=== PATIENT | female | born 1975 | race Caucasian/White ===

== ENCOUNTER → 2019-01-29 08:25 | Outpatient (CLI) | payer BC, SELFPAY ==
--- NOTE | 2019-01-29 08:32 | FL_ITS ---
PROCEDURE: FL UPPER GI W AIR CLINICAL INDICATION: DYSPHAGIA Dysphagia, chest pain COMPARISON: , Epigastric pain TECHNIQUE: FLUOROSCOPY TIME : 1 minutes and 18 seconds FINDINGS: The esophagus, stomach, and duodenum have an unremarkable appearance.There is no evidence of hiatal hernia. No ulcer or mass evident. No mucosal abnormalities apparent. There is normal peristalsis. The duodenal C-loop is nondisplaced. IMPRESSION: Negative upper GI Dictated by: Dave Ch MD 01/29/2019 11:15 Signed by: <Electronically signed by Dave Ch MD in OV> 01/29/2019 11:15
== END ==
PROVIDERS: PCP Family Medicine; Visit Provider Physician Assistant
DX: R13.10 Dysphagia, unspecified (principal)
CPT/HCPCS: 74247

== ENCOUNTER 2021-05-29 09:17 | Emergency (ER) | payer BC, SELFPAY ==
[2021-05-29 10:10] VITALS: BP 146/96; PULSE 83; RESP 18; TEMP 37; O2SAT 96; BMI 26.6
--- NOTE | 2021-05-29 10:24 | HMH.EDUTC ---
[facility] Disposition Clinical Impression: Viral syndrome Pharyngitis Qualifiers: Pharyngitis/tonsillitis etiology: unspecified etiology Qualified Code(s): J02.9 - Acute pharyngitis, unspecified Disposition: Home, Self-Care Condition on Discharge: Good Instructions: DI for Pharyngitis/Tonsillopharyngitis -- Adult, Preventing the Spread of Coronavirus Discharge Instructions Additional Instructions: Drink plenty of fluids. Take tylenol or ibuprofen for pain or fever. Take the medications as directed. Follow up with your regular doctor. GO TO THE ER FOR ANY WORSENING SYMPTOMS Quarantine until you know the results of your covid-19 test. If it is positive, the health department should call you and give you further instructions about your length of Quarantine and other things. Notify your school or workplace of your results and follow their instructions regarding return to work/school. The cough medication (promethazine dm) will make you drowsy, so don't drive or operate heavy machinery after taking it. Prescriptions: Promethazine/Dextromethorphan [Promethazine-Dm Syrup] 5 ml PO Q6HP PRN #240 ml PRN Reason: Cough Transmission Status: Received by [facility] predniSONE [Prednisone 20mg Tab] 20 mg PO BID 4 Days #8 tab Transmission Status: Received by [facility] Azithromycin [Z-Shar 250mg Tab*] 250 mg PO UD DOSE PK #6 tab Transmission Status: Received by [facility] Referrals: Jessenia Atkins MD [Primary Care Provider] - Forms: Work/School Release Time of Disposition: 11:06 Medical Decision Making - Medical Records Medical records reviewed: No: I reviewed the patient's medical records. - Navdeep Inquiry Pt receiving controlled substance: No Vital Signs: 05/29/21 10:10 05/29/21 11:07 Temperature 98.6 F 98.6 F Temperature Source Oral Pulse Rate 83 Pulse Rate [Right Brachial] 83 Respiratory Rate 18 18 Blood Pressure 146/96 H Blood Pressure [Right Arm] 146/96 H Blood Pressure Mean [Right Arm] 112 Blood Pressure Source [Right Arm] Automatic Cuff Blood Pressure Position [Right Arm] Sitting 02 Sat by Pulse Oximetry 96 Oxygen Delivery Method Room Air - Lab Data Lab results reviewed: Yes: I reviewed the patient's lab results. Lab Results 05/29/21 10:27: Strep [facility] Negative Orders (Tests/Meds): ORDERS Category Date Time Status Strep Screen Confirmation Routine Micro 05/29/21 10:27 Received [facility] HPI - General Stated complaint: bilateral ear ache, sore throat, cough Time Seen by Provider: 05/29/21 10:24 - History of Present Illness Provider Complaint: She reports that since yesterday she has been feeling very bad. She has had body aches, low grade fever up to 99.9, a dry cough and a scratchy sore throat. She has not been vaccinated against covid-19. - Related Data Home Medications Medication Instructions Recorded Confirmed Esomeprazole Magnesium [Nexium] 40 mg PO DAILY 09/08/17 11/22/17 Previous Rx's Medication Instructions Recorded Azithromycin [Z-Shar 250mg Tab*] 250 mg PO UD DOSE PK #6 tab 05/29/21 Promethazine/Dextromethorphan 5 ml PO Q6HP PRN #240 ml 05/29/21 [Promethazine-Dm Syrup] predniSONE [Prednisone 20mg 20 mg PO BID 4 Days #8 tab 05/29/21 Tab] Allergies Allergy/AdvReac Type Severity Reaction Status Date / Time Iodinated Contrast Media Allergy Unknown Verified 11/22/17 07:01 [IODINATED CONTRAST MEDIA - ORAL AND] nickel [NICKEL] Allergy Unknown Verified 11/22/17 07:01 [facility] History - Hepatitis A Screen Attestation statement:: This patient has been screened for Hepatitis A risk factors. I have reviewed the patient's past medical history: Yes Medical History: Reports:: Hypertension Denies:: Cancer, Diabetes Mellitus Type 1, Diabetes Mellitus Type 2, Internal Pacemaker, Lung Disease, MRSA, Seizures Other Surgeries: No: Pacemaker Amputation: No Fractures:
[2021-05-29 10:28] LABS: UTC Strep Screen (Rapid) Negative (Negative)
[2021-05-29 11:07] VITALS: BP 146/96; PULSE 83; RESP 18; TEMP 37; O2SAT 96
== END 2021-05-29 11:12 | disposition home or self-care (01) ==
PROVIDERS: Emergency Provider Nurse Practitioner Family; PCP Family Medicine
DX: J02.9 Acute pharyngitis, unspecified (principal); B34.9 Viral infection, unspecified; Z20.822 Contact with and (suspected) exposure to COVID-19
CPT/HCPCS: 87880; 99202; C9803; G0463; U0003; U0005

== ENCOUNTER 2022-07-05 18:12 | Emergency (ER) | payer BC, SELFPAY ==
[2022-07-05 18:12] VITALS: BP 143/97; PULSE 109; RESP 18; TEMP 36.8; O2SAT 98; BMI 26.6
--- NOTE | 2022-07-05 18:28 | ECG_ITS ---
APPROVED REPORT Exam: Resting ECG HR:90 bpm ECG Measurements Heart Rate 90 AXES AK 128 P 64 QRSd 87 QRS 58 QT 356 T 57 QTc 404 Conclusion SINUS RHYTHM NORMAL ECG UNCONFIRMED REPORT Electronically signed by : Amari Jack MD 07/06/2022 13:34:28
--- NOTE | 2022-07-05 18:42 | XR_ITS ---
PROCEDURE INFORMATION: Exam: XR Chest Exam date and time: 07/05/2022 7:02 PM Age: 46 years old Clinical indication: Pain; Chest pressure; Additional info: Chest pain TECHNIQUE: Imaging protocol: Radiologic exam of the chest. Views: 1 view. COMPARISON: CR CXR2V XR chest 2V 09/08/2017 8:35 PM FINDINGS: Lungs: Low lung volumes. Question mild peribronchial thickening and perihilar stranding suggesting possible bronchitis. Pulmonary vasculature grossly normal. No gross pulmonary infiltrates. Pleural spaces: No pleural effusion. No pneumothorax. Heart/Mediastinum: Heart size normal. No tracheal/mediastinal shift. Bones/joints: No acute osseous abnormalities are identified. IMPRESSION: 1. No definite acute process. Low lung volumes. 2. Question mild changes of bronchitis. No gross pulmonary infiltrates.
[2022-07-05 18:47] LABS: Coronavirus 19, PCR Not Detected (NotDetected); Influenza A, PCR Not Detected (NotDetected); Influenza B, PCR Not Detected (NotDetected)
--- NOTE | 2022-07-05 18:53 | PC.NURSE ---
radiology here for cxr
[2022-07-05 18:54] LABS: Chloride 109 mmol/L (98-107); Potassium 3.9 mmoL/L (3.5-5.1); Sodium 144 mmol/L (136-145)
--- NOTE | 2022-07-05 18:55 | HMH.EDGENADL ---
Discharge Plan Disposition Patient Disposition: Home, Self-Care Condition: Good Prescriptions Prescriptions: New hydroxyzine HCl 25 mg tablet 25 mg PO Q8H PRN (Reason: itching) Qty: 20 0RF ondansetron 4 mg tablet,disintegrating 4 mg PO Q8H PRN (Reason: nausea and vomiting) 4 Days Qty: 12 0RF No Action esomeprazole magnesium [Nexium] 40 MG capsule,delayed release(DR/EC) 40 mg PO DAILY promethazine-DM 120 ML syrup 5 ml PO Q6HP PRN (Reason: Cough) Qty: 240 0RF prednisone 20 MG tablet 20 mg PO BID 4 Days Qty: 8 0RF azithromycin 250 MG tablet 250 mg PO UD DOSE PK Qty: 6 0RF Rx Instructions: Take two (2) tablets today, then one (1) tablet days #2 thru #5 Referrals Follow up/Referrals: Jessenia Atkins MD [Primary Care Provider] - See instructions Activity Restrictions/Add. Instructions Additional Instructions/Restrictions: You were evaluated in the emergency department today. Please follow-up with your primary care provider over the next 48 hours. I recommend keeping a log of your blood pressures at home. call center support representative your prescriptions and take them as needed for symptoms. Return to the emergency department for any new or worsening symptoms. Clinical Impressions Clinical Impression: Panic attack Chest pain Qualifiers: Chest pain type: unspecified Qualified Code(s): R07.9 - Chest pain, unspecified Nausea & vomiting Qualifiers: Vomiting type: unspecified Qualified Code(s): R11.2 - Nausea with vomiting, unspecified Instructions Patient Instructions: Anxiety and Panic Attacks (Alternative Therapy), DI for Vomiting -- Adult Discharge ED Provider: Radha Morgan General Adult HPI General Chief complaint: Anxiety Stated complaint: elevated bp Time Seen by Provider: 07/05/22 18:29 Mode of Arrival: Ambulatory Source of Information: Patient Limitations: No Limitations Description of Symptoms (Recalled from ER Triage Doc. by RN): c/o high blood pressure at home with vomiting/diarrhea and some soreness/pain in her neck, maybe chest and arm. Pt states that she has a hx of anxiety and maybe this is a panic attack but she hasnt had one in a long time. States her v/d started Tuesday and it hasnt went away so this has her worried. History of Present Illness HPI narrative: This patient is a 46-year-old female with a history of anxiety who presented to the emergency department for evaluation with concern for panic attack. She states that she has been feeling bad over the last 4 days. She states that she has had nausea, vomiting, body aches, and diarrhea. Emesis is nonbloody nonbilious. She has no significant pain associated. She states that she took her blood pressure today for the first time in a long time, and she noted that it was high with a systolic in the 180s. Given this, she began to panic. She kept taking her blood pressure repeatedly, then went for a drive train to get it to go down, however it remained elevated in the 160s. After this, she vomited multiple times and felt like she was having trouble catching her breath. This caused pain in her chest and arm. No other concerns noted at this time. Related Data Home Medications Medication Instructions Recorded Confirmed esomeprazole magnesium 40 mg 40 mg PO DAILY Reflux/Acid reflux 09/08/17 11/22/17 capsule,delayed release (Nexium) Previous Rx's Medication Instructions Recorded azithromycin 250 mg tablet 250 mg PO UD DOSE PK #6 tabs 05/29/21 prednisone 20 mg tablet 20 mg PO BID 4 days #8 tabs 05/29/21 promethazine-DM 6.25 mg-15 mg/5 mL 5 ml PO Q6HP PRN Cough #240 mL 05/29/21 oral syrup hydroxyzine HCl 25 mg tablet 25 mg PO Q8H PRN itching #20 tabs 07/05/22 ondansetron 4 mg disintegrating 4 mg PO Q8H PRN nausea and 07/05/22 tablet vomiting 4 days #12 tabs Allergies Allergy/AdvReac Type Severity Reaction Status Date / Time Iodinated Contrast Media Allergy Unknown Verified 11/22/17 07:01 [IODINATED CONTRAST M
[2022-07-05 18:57] LABS: Blood Urea Nitrogen 10 mg/dl (7-17); Creatinine Clearance Estimated 165 mL/min (50-200); Estimated Glomerular Filt Rate 134 ml/min (>60); GFR (African American) 162 ML/MIN (>60)
[2022-07-05 18:58] LABS: Anion Gap 11.9 mEq/L (5-15); Calcium 9.6 mg/dl (8.4-10.2); Carbon Dioxide 27 mmol/L (22.0-30.0); Glucose 103 mg/dl (74-100)
[2022-07-05 19:00] VITALS: BP 139/92; PULSE 76; RESP 18; O2SAT 96
[2022-07-05 19:04] LABS: Basophils # 0.1 K/mm3 (0-0.2); Basophils % 1.3 % (0.1-2.0); Eosinophils # 0.1 K/mm3 (0.0-0.4); Eosinophils % 1.4 % (0.1-12.0); Hematocrit 45.4 % (37.0-47.0); Hemoglobin 14.5 g/dL (12.2-16.2); Lymphocytes # 2.4 K/mm3 (0.7-4.5); Lymphocytes % 23.7 % (10-50); Mean Corpuscular HGB Conc 31.9 g/dL (31.8-35.4); Mean Corpuscular Hemoglobin 29.3 pg (27.0-31.2); Mean Corpuscular Volume 91.8 fl (81-99); Mean Platelet Volume 8.5 fl (7.4-10.4); Monocytes # 0.4 K/mm3 (0.1-1.0); Monocytes % 4.3 % (1.7-9.3); Neutrophils % 69.3 % (37.0-80.0); Platelet Count 306 K/mm3 (142-424); Red Blood Count 4.95 M/mm3 (4.20-5.40); Red Cell Distribution Width 14.3 % (11.5-17.5); White Blood Count 10.1 K/mm3 (4.8-10.8)
[2022-07-05 19:05] LABS: Bilirubin,Unconjugated 0.1 mg/dL (0.0-1.1)
[2022-07-05 19:06] LABS: Alanine Aminotransferase 16 U/L (12-78); Albumin Level 4.9 g/dl (3.5-5.0); Alkaline Phosphatase 109 U/L (38-126); Aspartate Amino Transferase 28 U/L (14-36); Bilirubin,Direct 0.3 mg/dl (0.0-0.4); Bilirubin,Indirect 0.1 mg/dL (0.0-0.9); Bilirubin,Total 0.4 mg/dl (0.2-1.3); Lipase 40 U/L (23-300); Total Protein,Serum 8.1 g/dl (6.3-8.2)
[2022-07-05 19:08] LABS: HCG Qualitative, Serum Negative (Negative)
[2022-07-05 19:11] LABS: Troponin I < 0.01 ng/ml (0.00-0.034)
[2022-07-05 19:30] VITALS: BP 134/88; PULSE 76; RESP 18; O2SAT 96
[2022-07-05 19:47] VITALS: BP 134/88; PULSE 78; RESP 18; TEMP 36.6; O2SAT 99
== END 2022-07-05 19:51 | disposition home or self-care (01) ==
PROVIDERS: Emergency Provider Emergency Medicine; PCP Family Medicine
DX: R07.89 Other chest pain (principal); R11.2 Nausea with vomiting, unspecified; F41.9 Anxiety disorder, unspecified; F17.210 Nicotine dependence, cigarettes, uncomplicated; Z20.822 Contact with and (suspected) exposure to COVID-19
CPT/HCPCS: 71045; 80048; 80076; 83690; 84484; 84703; 85025; 93005; 96361; 96374; 99285; C9803; J2405; U0003; U0005

== ENCOUNTER 2023-04-07 10:31 | Emergency (ER) | payer BC, SELFPAY ==
[2023-04-07 10:45] VITALS: BP 156/107; PULSE 73; RESP 20; TEMP 36.8; O2SAT 97; BMI 27.1
--- NOTE | 2023-04-07 11:08 | EXP.UTC ---
Discharge Plan Disposition Patient Disposition: Home, Self-Care Condition: Good Prescriptions Prescriptions: New azithromycin [Zithromax] 250 mg tablet 250 mg PO UD DOSE PK Qty: 6 0RF Rx Instructions: Take two (2) tablets today, then one (1) tablet days #2 thru #5 benzonatate [benzonatate] 100 mg capsule 100 mg PO TIDP PRN (Reason: Cough) Qty: 30 0RF methylprednisolone 4 mg Tablets,Dose Pack 4 mg PO DIRECTED Qty: 21 0RF No Action esomeprazole magnesium [Nexium] 40 MG capsule,delayed release(DR/EC) 40 mg PO DAILY promethazine-DM 120 ML syrup 5 ml PO Q6HP PRN (Reason: Cough) Qty: 240 0RF prednisone 20 MG tablet 20 mg PO BID 4 Days Qty: 8 0RF azithromycin 250 MG tablet 250 mg PO UD DOSE PK Qty: 6 0RF Rx Instructions: Take two (2) tablets today, then one (1) tablet days #2 thru #5 hydroxyzine HCl 25 mg tablet 25 mg PO Q8H PRN (Reason: itching) Qty: 20 0RF ondansetron 4 mg tablet,disintegrating 4 mg PO Q8H PRN (Reason: nausea and vomiting) 4 Days Qty: 12 0RF Referrals Follow up/Referrals: Jessenia Atkins MD [Primary Care Provider] - See instructions Activity Restrictions/Add. Instructions Additional Instructions/Restrictions: Drink plenty of fluids. Take tylenol or ibuprofen for pain or fever. Take the medications as directed. Follow up with your regular doctor. GO TO THE ER FOR ANY WORSENING SYMPTOMS Clinical Impressions Clinical Impression: Bronchitis, Acute viral syndrome Stand Alone Forms Stand Alone Forms: Work/School Release Instructions Patient Instructions: Coronavirus Disease 2019, Preventing the Spread of Coronavirus Discharge Instructions Discharge ED Provider: Mario Mccauley [facility] HPI General Stated complaint: cold,cough,positive covid at home test Mode of Arrival: Ambulatory Source of Information: Patient Limitations: No Limitations Time Seen by Provider: 04/07/23 10:39 Description of Symptoms (Recalled from Triage Doc. by RN): PATIENT C/O COUGH, BODY ACHES, RUNNY NOSE, SNEEZING, AND FATIGUE THAT STARTED YESTERDAY. REPORTS A POSITIVE AT HOME COVID TEST HEENT Symptoms (Recalled from RN notes): Yes Resp Symptoms (Recalled from RN notes): Yes Skin Symptoms (Recalled from RN notes): No MS Symptoms (Recalled from RN notes): No Functional Status (Recalled from RN notes): WNL History of Present Illness Provider Complaint: She states that for the past 3 days she has had malaise, chills, body aches, nonproductive cough and pleuritic type chest and back pain. Related Data Home Medications Medication Instructions Recorded Confirmed esomeprazole magnesium 40 mg 40 mg PO DAILY Reflux/Acid reflux 09/08/17 11/22/17 capsule,delayed release (Nexium) Previous Rx's Medication Instructions Recorded azithromycin 250 mg tablet 250 mg PO UD DOSE PK #6 tabs 05/29/21 prednisone 20 mg tablet 20 mg PO BID 4 days #8 tabs 05/29/21 promethazine-DM 6.25 mg-15 mg/5 mL 5 ml PO Q6HP PRN Cough #240 mL 05/29/21 oral syrup hydroxyzine HCl 25 mg tablet 25 mg PO Q8H PRN itching #20 tabs 07/05/22 ondansetron 4 mg disintegrating 4 mg PO Q8H PRN nausea and 07/05/22 tablet vomiting 4 days #12 tabs azithromycin 250 mg tablet 250 mg PO UD DOSE PK #6 tabs 04/07/23 (Zithromax) benzonatate 100 mg capsule 100 mg PO TIDP PRN Cough #30 caps 04/07/23 methylprednisolone 4 mg tablets in 4 mg PO DIRECTED #21 tabs 04/07/23 a dose pack Allergies Allergy/AdvReac Type Severity Reaction Status Date / Time Iodinated Contrast Media Allergy Unknown Verified 11/22/17 07:01 [IODINATED CONTRAST MEDIA - ORAL AND] nickel [NICKEL] Allergy Unknown Verified 11/22/17 07:01 Worker's Comp Is this a Worker's Comp case?: No [facility] Disclaimer: The information contained in this section may have been updated after the patient was seen, as this information can be updated by other users. Medical History (Updated 04/07/23 @ 11:14 by Mario Booker
[2023-04-07 11:15] VITALS: BP 156/107; PULSE 73; RESP 20; TEMP 36.8; O2SAT 97
== END 2023-04-07 11:18 | disposition home or self-care (01) ==
PROVIDERS: Emergency Provider Nurse Practitioner Family; PCP Family Medicine
DX: U07.1 COVID-19 (principal); J20.8 Acute bronchitis due to other specified organisms; R07.81 Pleurodynia; F17.210 Nicotine dependence, cigarettes, uncomplicated
CPT/HCPCS: 87635; 99212; 99214; G0463

== ENCOUNTER 2023-04-30 09:57 | Emergency (ER) | payer BC, SELFPAY ==
[2023-04-30 09:57] VITALS: BP 149/106; PULSE 80; RESP 22; TEMP 36.8; O2SAT 99; BMI 27.1
--- NOTE | 2023-04-30 10:05 | XR_ITS ---
PROCEDURE INFORMATION: Exam: XR Chest Exam date and time: 04/30/2023 10:07 AM Age: 47 years old Clinical indication: Pain; Left-sided; Additional info: Cp left TECHNIQUE: Imaging protocol: Radiologic exam of the chest. Views: 1 view. COMPARISON: CR XR CHEST PORTABLE 07/05/2022 7:02 PM FINDINGS: Lungs: No consolidation or lung nodules. Pleural spaces: No pleural effusion. No pneumothorax. Heart/Mediastinum: No abnormalities. No cardiomegaly. No pulmonary vascular congestion. Bones/joints: No fractures or bone lesions. IMPRESSION: No acute findings in the chest. No interval change.
--- NOTE | 2023-04-30 10:06 | HMH.EDGENADL ---
Discharge Plan Disposition Patient Disposition: Home, Self-Care Chief Complaint: Chest Pain Prescriptions Prescriptions: No Action esomeprazole magnesium [Nexium] 40 MG capsule,delayed release(DR/EC) 40 mg PO DAILY promethazine-DM 120 ML syrup 5 ml PO Q6HP PRN (Reason: Cough) Qty: 240 0RF prednisone 20 MG tablet 20 mg PO BID 4 Days Qty: 8 0RF azithromycin 250 MG tablet 250 mg PO UD DOSE PK Qty: 6 0RF Rx Instructions: Take two (2) tablets today, then one (1) tablet days #2 thru #5 hydroxyzine HCl 25 mg tablet 25 mg PO Q8H PRN (Reason: itching) Qty: 20 0RF ondansetron 4 mg tablet,disintegrating 4 mg PO Q8H PRN (Reason: nausea and vomiting) 4 Days Qty: 12 0RF azithromycin [Zithromax] 250 mg tablet 250 mg PO UD DOSE PK Qty: 6 0RF Rx Instructions: Take two (2) tablets today, then one (1) tablet days #2 thru #5 benzonatate [benzonatate] 100 mg capsule 100 mg PO TIDP PRN (Reason: Cough) Qty: 30 0RF methylprednisolone 4 mg Tablets,Dose Pack 4 mg PO DIRECTED Qty: 21 0RF Referrals Follow up/Referrals: Jessenia Atkins MD [Primary Care Provider] - See instructions Aris Nguyen MD [Staff Physician] - See instructions Activity Restrictions/Add. Instructions Additional Instructions/Restrictions: At this time it was felt you are safe to be discharged home. If new or worsening symptoms please do not hesitate to return the emergency department. Please follow-up with your family doctor for possible initiation of long-term anxiety medicine. Please call and schedule an appointment with Dr. Nguyen as you are able. Clinical Impressions Clinical Impression: Chest pain, Anxiety Discharge ED Provider: Lucho Hayes General Adult HPI General Chief complaint: Chest Pain Stated complaint: SOA/Dizziness/Hx Anxiety Time Seen by Provider: 04/30/23 09:58 History of Present Illness HPI narrative: Patient is a 47-year-old female with past medical history of anxiety not on chronic controlled medication who presents emergency department for evaluation of chest pain and anxiety. Patient's previous attacks she feels short of breath with associated chest pain, resultant hyperventilation and sometimes transiently losing consciousness. Today patient had a similar episode which was more severe than normal, transient loss of consciousness slumping to the floor, no significant trauma with rapid return to baseline. She also has associated subacute left-sided chest pain radiating up into her shoulder for the last 5 weeks. No other acute complaints at this time. Related Data Home Medications Medication Instructions Recorded Confirmed esomeprazole magnesium 40 mg 40 mg PO DAILY Reflux/Acid reflux 09/08/17 11/22/17 capsule,delayed release (Nexium) Previous Rx's Medication Instructions Recorded azithromycin 250 mg tablet 250 mg PO UD DOSE PK #6 tabs 05/29/21 prednisone 20 mg tablet 20 mg PO BID 4 days #8 tabs 05/29/21 promethazine-DM 6.25 mg-15 mg/5 mL 5 ml PO Q6HP PRN Cough #240 mL 05/29/21 oral syrup hydroxyzine HCl 25 mg tablet 25 mg PO Q8H PRN itching #20 tabs 07/05/22 ondansetron 4 mg disintegrating 4 mg PO Q8H PRN nausea and 07/05/22 tablet vomiting 4 days #12 tabs azithromycin 250 mg tablet 250 mg PO UD DOSE PK #6 tabs 04/07/23 (Zithromax) benzonatate 100 mg capsule 100 mg PO TIDP PRN Cough #30 caps 04/07/23 methylprednisolone 4 mg tablets in 4 mg PO DIRECTED #21 tabs 04/07/23 a dose pack Allergies Allergy/AdvReac Type Severity Reaction Status Date / Time Iodinated Contrast Media Allergy Unknown Verified 11/22/17 07:01 [IODINATED CONTRAST MEDIA - ORAL AND] nickel [NICKEL] Allergy Unknown Verified 11/22/17 07:01 [facility] Disclaimer: The information contained in this section may have been updated after the patient was seen, as this information can be updated by other users. Medical History (Updated 04/30/23 @ 11:24 by Lucho Acosta
--- NOTE | 2023-04-30 10:12 | PC.NURSE ---
RAD at BS
[2023-04-30 10:18] LABS: Basophils % 0.6 % (0.1-2.0); Eosinophils # 0.1 K/mm3 (0.0-0.4); Eosinophils % 1.4 % (0.1-12.0); Hematocrit 42.3 % (37.0-47.0); Hemoglobin 14.1 g/dL (12.2-16.2); Lymphocytes # 1.2 K/mm3 (0.7-4.5); Lymphocytes % 25.2 % (10-50); Mean Corpuscular HGB Conc 33.3 g/dL (31.8-35.4); Mean Platelet Volume 8.4 fl (7.4-10.4); Monocytes # 0.3 K/mm3 (0.1-1.0); Monocytes % 6.2 % (1.7-9.3); Neutrophils # 3.3 K/mm3 (1.8-7.8); Neutrophils % 66.7 % (37.0-80.0); Platelet Count 239 K/mm3 (142-424); Red Blood Count 4.54 M/mm3 (4.20-5.40); Red Cell Distribution Width 14.5 % (11.5-17.5); White Blood Count 4.9 K/mm3 (4.8-10.8)
--- NOTE | 2023-04-30 10:18 | ECG_ITS ---
APPROVED REPORT Exam: Resting ECG HR:74 bpm ECG Measurements Heart Rate 74 AXES AZ 160 P 68 QRSd 81 QRS 76 QT 403 T 55 QTc 430 Conclusion SINUS RHYTHM NORMAL ECG UNCONFIRMED REPORT Electronically signed by : Amari Jack MD 04/30/2023 21:18:52
[2023-04-30 10:23] LABS: Chloride 108 mmol/L (98-107); Potassium 3.6 mmoL/L (3.5-5.1); Sodium 139 mmol/L (136-145)
[2023-04-30 10:25] LABS: Alanine Aminotransferase 21 U/L (12-78); Aspartate Amino Transferase 29 U/L (14-36); Blood Urea Nitrogen 17 mg/dl (7-17); Estimated Glomerular Filt Rate 133 ml/min (>60); GFR (African American) 161 ML/MIN (>60)
[2023-04-30 10:26] LABS: Albumin Level 4.4 g/dl (3.5-5.0); Albumin/Globulin Ratio 1.8 (1.1-1.8); Alkaline Phosphatase 82 U/L (38-126); Anion Gap 8.6 mEq/L (5-15); Bilirubin,Total 0.5 mg/dl (0.2-1.3); Calcium 8.6 mg/dl (8.4-10.2); Carbon Dioxide 26 mmol/L (22.0-30.0); Globulin 2.5 g/dL (1.3-3.2); Glucose 101 mg/dl (74-100); Magnesium 1.9 mg/dl (1.6-2.3); Total Protein,Serum 6.9 g/dl (6.3-8.2)
[2023-04-30 10:30] VITALS: BP 142/90; PULSE 69; RESP 27; O2SAT 95
[2023-04-30 10:31] LABS: HCG Qualitative, Serum Negative (Negative)
[2023-04-30 10:57] LABS: Thyroid Stimulating Hormone 1.03 uIU/mL (0.465-4.68)
[2023-04-30 11:00] VITALS: BP 114/74; PULSE 67; RESP 21; O2SAT 97
[2023-04-30 11:07] LABS: Troponin I < 0.01 ng/ml (0.00-0.034)
--- NOTE | 2023-04-30 11:23 | PC.NURSE ---
Rounded on pt. Pt provided with warm blanket. No other needs voiced.
[2023-04-30 11:30] VITALS: BP 124/77; PULSE 66; O2SAT 97
[2023-04-30 12:00] VITALS: BP 115/80; PULSE 78; RESP 20; O2SAT 97
--- NOTE | 2023-04-30 12:11 | PC.NURSE ---
pt ambulated to restroom at this time, standby staff assist
[2023-04-30 12:16] VITALS: BP 115/80; PULSE 78; RESP 20; TEMP 36.8; O2SAT 97
== END 2023-04-30 12:16 | disposition home or self-care (01) ==
PROVIDERS: Emergency Provider Emergency Medicine; PCP Family Medicine
DX: R07.9 Chest pain, unspecified (principal); R06.02 Shortness of breath; R42 Dizziness and giddiness; F41.1 Generalized anxiety disorder; F17.210 Nicotine dependence, cigarettes, uncomplicated
CPT/HCPCS: 71045; 80053; 83735; 84443; 84484; 84703; 85025; 93005; 96374; 99284

== ENCOUNTER → 2023-05-04 16:21 | Outpatient (CLI) | payer BC, SELFPAY ==
--- NOTE | 2023-05-04 16:26 | XR_ITS ---
PROCEDURE INFORMATION: Exam: XR Cervical Spine Exam date and time: 05/04/2023 4:28 PM Age: 47 years old Clinical indication: Other: Shooting pains; Neck pain TECHNIQUE: Imaging protocol: Radiologic exam of the cervical spine. Views: 2 or 3 views. COMPARISON: CTAN CTA-NECK 04/30/2016 11:44 AM FINDINGS: Bones/joints: Normal. No acute fracture. Normal alignment. Soft tissues: Unremarkable. IMPRESSION: No acute findings.
== END ==
LOC: RAD 16:22
PROVIDERS: PCP Family Medicine; Visit Provider Physician Assistant
DX: M54.2 Cervicalgia (principal)
CPT/HCPCS: 72040

== ENCOUNTER 2023-05-29 13:44 | Emergency (ER) | payer BC, SELFPAY ==
[2023-05-29 14:40] VITALS: BP 125/89; PULSE 114; RESP 20; TEMP 37.4; O2SAT 94; BMI 27.3
--- NOTE | 2023-05-29 14:48 | EXP.UTC ---
Discharge Plan Disposition Patient Disposition: Home, Self-Care Condition: Good Prescriptions Prescriptions: New benzonatate [benzonatate] 100 mg capsule 100 mg PO TIDP PRN (Reason: Cough) Qty: 30 0RF oseltamivir [Tamiflu] 75 mg capsule 75 mg PO BID Qty: 10 0RF ondansetron 4 mg Tablet,Disintegrating 4 mg PO Q8H PRN (Reason: Nausea) Qty: 12 0RF Referrals Follow up/Referrals: Edin Farnsworth MD [Primary Care Provider] - See instructions Activity Restrictions/Add. Instructions Additional Instructions/Restrictions: Drink plenty of fluids. Take tylenol or ibuprofen for pain or fever. Take the medications as directed. Follow up with your regular doctor. GO TO THE ER FOR ANY WORSENING SYMPTOMS Clinical Impressions Clinical Impression: Influenza B Instructions Patient Instructions: DI for Influenza -- Adult, Oseltamivir Discharge ED Provider: Mario Mccauley [facility] HPI General Stated complaint: body aches, fever, vomiting, diarreah Time Seen by Provider: 05/29/23 14:48 History of Present Illness Provider Complaint: She states that for the past 2 days she has had body aches, chills, fever, malaise, cough and n/v/d. Related Data Previous Rx's Medication Instructions Recorded benzonatate 100 mg capsule 100 mg PO TIDP PRN Cough #30 caps 05/29/23 ondansetron 4 mg disintegrating 4 mg PO Q8H PRN Nausea #12 tabs 05/29/23 tablet oseltamivir 75 mg capsule (Tamiflu) 75 mg PO BID #10 caps 05/29/23 Allergies Allergy/AdvReac Type Severity Reaction Status Date / Time Iodinated Contrast Media Allergy Unknown Verified 11/22/17 07:01 [IODINATED CONTRAST MEDIA - ORAL AND] nickel [NICKEL] Allergy Unknown Verified 11/22/17 07:01 [facility] Disclaimer: The information contained in this section may have been updated after the patient was seen, as this information can be updated by other users. Medical History (Updated 05/29/23 @ 15:05 by Mario Mccauley APRN) Anxiety History of heart attack Surgical History (Updated 04/07/23 @ 10:54 by Shani Sandy RN) History of tubal ligation Social History (Updated 07/05/22 @ 19:57 by Radha Morgan DO) Smoking Status: Current every day smoker tobacco type: cigarettes alcohol intake: never counseling provided: none substance use type: denies use current occupational status: employed Travel in the last 8 weeks: None ROS Obtained: Yes All systems reviewed & no additional complaints except as documented Constitutional Constitutional: Reports chills and Reports fever(s) Eyes Eyes: Denies eye discharge ENT Ears, Nose, Mouth, and Throat: Reports as per HPI Cardiovascular Cardiovascular: Denies chest pain Respiratory Respiratory: Denies chest congestion and Reports cough Gastrointestinal Gastrointestingal: Reports nausea; Denies abdominal pain, constipation, cramping, diarrhea or vomiting Musculoskeletal Musculoskeletal: Denies arthralgias Integumentary/Breasts Skin/Breast: Denies rash Neurologic Neurologic: Denies paresthesias Physical Exam General General appearance: alert and in no apparent distress Head Head exam: atraumatic, normocephalic and normal inspection Eye Eye exam: Present normal appearance, PERRL and EOMI ENT ENT exam: Present normal exam, normal oropharynx, mucous membranes moist, TM's normal bilaterally and normal external ear exam Neck Neck exam: Present normal inspection, full ROM and trachea midline; Absent meningismus or lymphadenopathy Chest Chest inspection: Present normal inspection and symmetric chest wall rise; Absent tenderness Respiratory Respiratory exam: Present normal lung sounds bilaterally; Absent respiratory distress Cardiovascular Cardiovascular exam: Present regular rate and normal rhythm; Absent JVD Abdominal Exam Abdominal exam: Present soft and normal bowel sounds; Absent distention, tenderness or guarding Extremities Exam Extremities exam: Present normal inspection, ful
[2023-05-29 14:54] LABS: UTC Influenza A Antigen Negative (Negative); UTC Influenza B Antigen Positive (Negative)
[2023-05-29 15:14] VITALS: BP 125/89; PULSE 114; RESP 20; TEMP 37.4; O2SAT 94
== END 2023-05-29 15:15 | disposition home or self-care (01) ==
PROVIDERS: Emergency Provider Nurse Practitioner Family; PCP Family Medicine
DX: J10.2 Influenza due to other identified influenza virus with gastrointestinal manifestations (principal); R11.2 Nausea with vomiting, unspecified; R19.7 Diarrhea, unspecified; R50.9 Fever, unspecified; R05.9 Cough, unspecified; M79.18 Myalgia, other site; R53.81 Other malaise; F17.210 Nicotine dependence, cigarettes, uncomplicated
CPT/HCPCS: 87804; 99212; 99214; G0463